=== PATIENT | female | born 1980 | race Caucasian/White ===

== ENCOUNTER 2020-08-11 08:21 | Day surgery (SDC) | payer MEDICAID ==
[2020-08-08 15:01] LABS: BASOPHILS # (AUTO) 0.1 X10'3 (0-0.2); BASOPHILS % (AUTO) 1.1 % (0-1); EOSINOPHILS # (AUTO) 0.3 X10'3 (0-0.9); LYMPHOCYTES # (AUTO) 2.3 X10'3 (1.1-4.8); LYMPHOCYTES % (AUTO) 23.7 % (21-51); MEAN CORPUSCULAR HEMOGLOBIN 31.6 PG (27.0-31.0); MEAN CORPUSCULAR HGB CONC 33.4 g/dL (33.0-36.5); MEAN CORPUSCULAR VOLUME 94.5 FL (78-98); MEAN PLATELET VOLUME 8.6 FL (7.4-10.4); MONOCYTES # (AUTO) 0.5 X10'3 (0-0.9); NEUTROPHILS # (AUTO) 6.6 X10'3 (1.8-7.7); NEUTROPHILS % (AUTO) 67.2 % (42-75); PRE OP HEMATOCRIT 36.7 % (35.0-45.0); PRE OP HEMOGLOBIN 12.2 g/dL (12.0-16.0); PRE OP PLATELET COUNT 325 X10'3 (140-440); RED BLOOD COUNT 3.88 X10'6 (4.20-5.60); RED CELL DISTRIBUTION WIDTH 15.6 % (11.5-14.5)
[2020-08-08 15:13] LABS: ALBUMIN 4.3 G/DL (3.4-5.0); ALBUMIN/GLOBULIN RATIO 1.1 (1.1-1.5); ALKALINE PHOSPHATASE 111 IU/L (46-116); BLOOD UREA NITROGEN 15 MG/DL (7-18); BUN/CREATININE RATIO 15.8 (6.6-38.0); CHLORIDE 102 MMOL/L (99-107); CREATININE 0.95 MG/DL (0.40-0.90); PRE OP ALT 22 U/L (30-65); PRE OP ANION GAP 8 (8-16); PRE OP AST 38 U/L (10-37); PRE OP BILIRUB, TOTAL 0.4 MG/DL (0.0-1.0); PRE OP GLUCOSE 90 MG/DL (70-104); PRE OP POTASSIUM 3.7 MMOL/L (3.4-5.1); PRE OP SODIUM 138 MMOL/L (135-145); TOTAL CARBON DIOXIDE 27.9 MMOL/L (24-32); TOTAL PROTEIN 8.2 G/DL (6.4-8.2); eGFR 66 ML/MIN
[2020-08-08 16:26] LABS: HCG SERUM QL NEGATIVE
[~2020-08-11] VITALS: Ht 162.6 cm; Wt 77.2 kg
[~2020-08-11 08:21] MED LIST: BUPIVAcaine/PF 2.5 mg/ml (0.25%) 30ml vial ONE; HYDR-3965 PO; LEVO75TA7 PO; NAPR220T67 PO; cefazolin/dext.iso 2gm/100ml IV ONE; famotidine 20mg tablet PO ONE; ringers solution, lacted 1,000 ML IV SCH
[2020-08-11 08:30] VITALS: BP 114/75
[2020-08-11] MEDS ORDERED: fentaNYL/PF 50MCG/1 ML 2ML syringe IV PRN ×2 (12:05)
[2020-08-11] MEDS ORDERED: proCHLORperazine 10 MG/2 ml inj IV PRN (12:05)
[2020-08-11] MEDS ORDERED: acetaminophen 1,000mg/100ml IV 100 ML IV PRN (12:05)
[2020-08-11] MEDS ORDERED: fentaNYL/PF 50MCG/1 ML 2ML syringe ONE ×2 (12:05→12:52)
[2020-08-11] MEDS ORDERED: ondansetron/PF 4mg/2ml inj IV PRN (12:05)
[2020-08-11] MEDS ORDERED: ringers solution, lacted 1,000 ML IV SCH (12:05)
[2020-08-11] MEDS ORDERED: meperidine/PF 25mg/ml syringe IV PRN ×3 (12:05)
[2020-08-11] MEDS ORDERED: midazolam 1 mg/ML 2ml injection ONE (12:06)
[2020-08-11] MEDS ORDERED: propofol inj 20 ML IV ONE ×2 (12:18)
[2020-08-11] MEDS ORDERED: LIDOcaine 0.5% (5mg/ml) 50ml vial ONE (12:24)
[2020-08-11] MEDS ORDERED: HYDROmorphone 1 mg/ml syringe ONE (12:50)
[2020-08-11] MEDS ORDERED: ROPIVAcaine 0.5% (5mg/ml) 30ml vial ONE (13:04)
[2020-08-11] MEDS ORDERED: LIDOcaine 1%/PF 5ML 10 MG/ML VIAL ONE (13:04)
[2020-08-11 13:14] VITALS: BP 109/78
--- NOTE | 2020-08-11 13:14 | NUR ---
Received from OR via [facility] , accompanied by Anesthesiologist MAXX and report given by Anesthesiolgist. PATIENT WITH 20G PIV IN RIGHT UE RUNNING LR AT 100, DENIES PAIN LEFT UE IN SPLINT THAT IS CDI. + CAP REFILL TO EXPOSED FINGERS AND THUMB. DONNED ICE TO LEFT SPLINT TO UE. VSS Addendum: 08/11/20 at 1320 by Garland Reyes RN, RN Amended: Links added.
[2020-08-11 13:17] VITALS: BP 109/78
[2020-08-11 13:24] VITALS: BP 119/89
[2020-08-11 13:34] VITALS: BP 113/87
[2020-08-11 13:44] VITALS: BP 122/76
--- NOTE | 2020-08-11 14:49 | NUR ---
MD JAMIL ASKED PATIENT WHICH PHARMACY TO SEND ELECTRONIC PRESCRIPTION TO AND SCRIPT WAS SENT THERE. PATIENT NOW ASKING TO HAVE IT SENT ELSEWHERE. NOTIFIED TO CONTACT PHARMACY AND MAKE THE CHANGE OR CALL MD JAMIL IF UNABLE. Addendum: 08/11/20 at 1454 by Garland Reyes RN, RN Amended: Links added.
== END 2020-08-11 13:54 | disposition home or self-care (01) ==
LOC: PAS 08:21
PROVIDERS: ATTEND Orthopaedic Surgery Hand Surgery
DX: S63.115A Dislocation of metacarpophalangeal joint of left thumb, initial encounter (principal); F17.290 Nicotine dependence, other tobacco product, uncomplicated; G89.18 Other acute postprocedural pain; M19.041 Primary osteoarthritis, right hand; I10 Essential (primary) hypertension; E03.9 Hypothyroidism, unspecified; F12.90 Cannabis use, unspecified, uncomplicated; Z20.822 Contact with and (suspected) exposure to COVID-19; Z79.899 Other long term (current) drug therapy; Z98.890 Other specified postprocedural states; Z88.8 Allergy status to other drugs, medicaments and biological substances; X50.9XXA Other and unspecified overexertion or strenuous movements or postures, initial encounter; Y93.89 Activity, other specified; Y92.89 Other specified places as the place of occurrence of the external cause; Y99.8 Other external cause status
CPT/HCPCS: 26850; 36415; 64417; 76942; 80053; 82948; 84703; 85025; C1713; J1170; J2001; J2250; J2704; J3010; J3490; J7120; U0003; U0005; A4215; A4618; A7000; J2795